=== PATIENT | male | born 1970 | race Caucasian/White ===

== ENCOUNTER 2025-04-01 09:22 | Emergency (ER) | payer BC, SELFPAY ==
[2025-04-01 09:31] VITALS: BP 159/99
[2025-04-01 10:01] LABS: Hematocrit 43.8 % (39.0-52.0); Hemoglobin 15.1 g/dL (13.0-18.0); Mean Corp Hgb Conc. 34.5 g/dL (33.0-37.0); Mean Corpuscular Volume 86.7 fL (80.0-94.0); Nucleated Red Blood Cells % 0 % (-); Platelet Count 154 10^3/uL (130-400); Red Cell Dist. Width 12.4 % (11.5-14.5)
[2025-04-01 10:11] LABS: ALT (SGPT) 26 U/L (0-50); AST (SGOT) 33 U/L (17-59); Albumin 4.6 g/dl (3.5-5.0); Alkaline Phosphatase 49 U/L (38-126); Blood Urea Nitrogen 14 mg/dl (9-20); Calcium 9.5 mg/dl (8.4-10.2); Carbon Dioxide 30 mmol/L (22-30); Chloride 100 mmol/L (98-107); Glucose 107 mg/dl (70-99); Potassium 4.5 mmol/L (3.5-5.1); Sodium 138 mmol/L (135-145); Total Protein 7.4 g/dl (6.3-8.2); eGFR > 60.00
[2025-04-01 10:22] LABS: Troponin I < 0.012 ng/ml
[2025-04-01 11:30] VITALS: BP 144/94
[2025-04-01 11:42] VITALS: BP 144/94
[2025-04-01 11:43] VITALS: BMI 24.6
[2025-04-01 12:00] VITALS: BP 167/97
--- NOTE | 2025-04-01 12:06 | ED.GENMED ---
History of Present Illness
General
Chief Complaint: Heart Rate Problem
Source: patient
Exam Limitations: none
Time Seen by Provider: 04/01/25 11:38
Nursing documentation reviewed up to this point in time: agreed with
History of Present Illness
History of Present Illness:
Pt without any sig. past medical history, presents to ED after outpatient EKG showed abnormal findings. 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 Denies chest pain/palpitations/sob. Denies recent illness. Denies
recent change in diet or weight changes. Denies family history of heart disease. Pt has no complaints. Pt states that he saw today's physician for the first time and did not have access to previous test results.
Review of Systems
Review of Systems
Allergies reviewed?: Yes
All Other Systems: ROS reviewed and negative except as documented in HPI and ROS
Constitutional: Reports no symptoms; Denies fever
Respiratory: Reports no symptoms; Denies trouble breathing
Cardiac: Reports no symptoms; Denies chest pain
ABD/GI: Reports no symptoms
Musculoskeletal: Reports no symptoms
Skin: Reports no symptoms
Neurological: Reports no symptoms
Phy Exam
Physical Exam
Physical Exam:
Physical Exam
General: no apparent distress, not acutely ill. afebrile
Head: nc/at. eomi
Neck: supple. no meningeal signs.
Heart: s1/s2 regular rate and rhythm
Lungs: no acute respiratory distress. clear bilaterally
Abdomen: normal bowel sounds. not tender.
Neuro: alert and oriented x 3. no focal neurological deficits
Skin: no rash
Psychiatric: well kept. interactive and cooperative
Extremities: no edema. no calf tenderness.
Course
Orders/Labs/Results
Orders:
Orders
04/01/25 09:33
Electrocardiogram (*1) Urgent
Reason for Study: Chest Pain
EKG- Treatment ONCE
IV Insert/Care/Rem.- Treatment PRN
04/01/25 09:43
Complete Blood Count/With Diff Urgent
Comprehensive Metabolic Panel Urgent
Troponin I Urgent
Abnormal Lab Results
04/01/25
09:43
MPV 10.5 H fL
(7.4-10.4)
Glucose 107 H mg/dl
(70-99)
Total Bilirubin 2.0 H mg/dl
(0.2-1.3)
04/01/25 09:43
04/01/25 09:43
Vital Signs
Initial and Last Documented VS:
Initial Vital Signs
Temp Pulse Resp BP Pulse Ox
98 F 58 16 159/99 100
04/01/25 09:31 04/01/25 09:31 04/01/25 09:31 04/01/25 09:31 04/01/25 09:31
Last Documented Vital Signs
Temp Pulse Resp BP Pulse Ox
98 F 65 17 167/97 100
04/01/25 09:31 04/01/25 12:00 04/01/25 12:00 04/01/25 12:00 04/01/25 12:07
MDM/Problems Addressed
MDM/Problems Addressed:
Patient with an unremarkable workup in ED, including blood work. EKG does reveal nonspecific T wave inversion on leads II and aVF, without any other abnormal findings.
Isolated elevation of total bilirubin level noted, to be discussed with his primary care physician.
Pt evaluated in ED by cardiology, Dr. Garcia. Cardiology consultation notation provided to patient prior to discharge
*Pulse Oximetry
SaO2: 100
Oxygen Mode of Delivery: Room air
Patient hypoxic: no
*EKG
Interpreted by ED Provider?: Yes
EKG Intrepretation Date: 04/01/25
Heart Rate: 63
Rate: normal
Rhythm: sinus
Ischemia: T-wave inversion
*Critical Care Note
Total Time (30-74mins, 75-104mins- exclusive of procedures): Not Applicable
ED Attending Note
-
Portions of this chart may have been created with voice recognition software.� Occasional wrong word or��sound alike� substitutions may have occurred due to the inherent limitations of voice recognition software.
Discharge Plan
Departure
Patient Disposition: Home (Routine Discharge)
Date of Disposition: 04/01/25
Time of Disposition: 12:56
Patient with high blood pressure during this ER visit?: Yes
Condition: Good
Discharge Problem:
Abnormal ECG
Prescriptions:
No Action
No Current Medications
0
Referrals:
Juancho Britton MD [Family Provider, Internal Medicine]
Julio Garcia MD [Active, Cardiology]
Activity Restrictions/Additional Instructions:
As discussed, please follow-up with your primary care physician with any further concerns.
Interventions
Interventions:
*Risk Screen - Suicide Last Done: 04/01/25 09:31
*General Assessment Last Done: 04/01/25 09:31
*Neglect/Abuse Screening Last Done: 04/01/25 09:31
*ED- Fall Risk Assessment Last Done: 04/01/25 11:45
*ED COVID-19 Vaccine History Last Done: 04/01/25 11:45
*ED Influenza Vaccine History Last Done: 04/01/25 11:45
*Nursing Disposition Last Done: 04/01/25 13:53
ED- Cardiac Assessment Last Done: 04/01/25 11:46
ED- Pulmonary Assessment Last Done: 04/01/25 11:46
Discharge Date and Time
Discharge Date/Time: 04/01/25 13:54
Print Language: GABONESE
--- NOTE | 2025-04-01 13:15 | CON.CAR ---
Addendum entered and electronically signed by Julio Garcia MD 04/01/25 13:45:
I saw and evaluated the patient, and I provided the substantive portion of the medical decision making.
I reviewed and agree with the note by Ms Lee and it accurately reflects our care.
I personally performed the medical decision making of the this encounter and my assessment and plan is below:
Abnormal EKG in an asymptomatic patient
- Mr. Perez has no symptoms to suggest coronary artery disease. He is very active running 4 to 6 miles 4-6 times every week. Additionally, he had lab work in the emergency room which was unremarkable. He needs no further testing or medications
from a cardiology perspective.
However, if he needs further testing per the [employer] due to this abnormal EKG, we would be happy to facilitate. If this is the case, we should be contacted at [facility] is [phone] with myself, Dr. Julio Garcia as philosophy faculty member.
Original Note:
Consultation
Consultation Request
Date/Time Consultation Requested: 04/01/25 1245
Date/Time Consultation Performed: 04/01/25 1300
Requesting Provider: Dr. Wong
Performing Provider: Linda PAULSON for Dr. Garcia
Reason for Consultation: abnormal EKG
Medical History
-
Chief Complaint: abnormal EKG
History of Present Illness:
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 His EKG was seen to be abnormal and he was recommended to go to the ER. Of note, his previous physician who typically did
these visits for patient retired so there were no old EKG's to compare. In ER, troponin is normal. He runs 4-6 miles 4-6 days a week and has no CP or SOB. He looks well at the time of assessment. EKG in ER: SR with T wave inversions III and AVF.
Past Medical History
Past Medical History: None
Past Surgical History: Other (prostate biopsy history)
Social History
Tobacco: Non-Smoker
Alcohol: Occasional
Drug: None
Personal:
Living: With Family
Employment: Employed
Family History
Family History: CAD (patient's father had CABG at age 60, was smoker, still alive)
Allergies / Home Medications
Allergy/AdvReac Type Severity Reaction Status Date / Time
No Known Allergies Allergy Unverified 04/01/25 09:47
�Medication �Instructions �Recorded �Confirmed �Type
No Meds [No Current Medications] 04/01/25 04/01/25 History
Review of Systems
-
History Source: Patient
All other systems: Negative unless noted (no symptoms)
Physical Exam
Vital Signs
Temp Pulse Resp BP Pulse Ox
98 F 65 17 167/97 100
04/01/25 09:31 04/01/25 12:00 04/01/25 12:00 04/01/25 12:00 04/01/25 12:07
Lab Results
04/01/25 09:43
04/01/25 09:43
Troponin I < 0.012 ng/ml 04/01/25 09:43
Physical Exam
General: Well Developed, Well Nourished and No Apparent Distress
HEENT: Normocephalic and Anicteric
Respiratory: Clear and Non Labored Respirations
Cardiac: Regular Rhythm
Musculoskeletal: No Edema
Skin: Warm and Dry
Neuro: AO x 3
Psych: Calm
Impression / Plan
-
Abnormal EKG: SR with T wave inversions III and AVF
-no previous EKG available at this time
-troponin is normal
-patient remains active as described and has no chest pain or shortness of breath. He looks well.
-no further testing required at this time from a general cardiac perspective in this patient without any concerning symptoms. However, if he needs further testing per the FAA due to this abnormal EKG, we would be happy to facilitate. If this is the
case, we should be contacted at [facility] is [phone] Julio Garcia as philosophy faculty member.
Data Reviewed
-
EKG: Tracing Personally Visualized and interpreted (SR with T wave inversions III and AVF)
Labs: Labs Reviewed by me
== END 2025-04-01 13:54 | disposition home or self-care (01) ==
LOC: EMR 09:22
PROVIDERS: EMERGENCY PHYSICIAN Emergency Medicine; FAMILY PHYSICIAN Internal Medicine
DX: R94.31 Abnormal electrocardiogram [ECG] [EKG] (principal); Z82.49 Family history of ischemic heart disease and other diseases of the circulatory system
CPT/HCPCS: 99283; 80053; 84484; 85025; 93005

== ENCOUNTER → 2025-04-09 14:28 | Outpatient (REF) | payer BC, SELFPAY | LOC: HWRCS 14:28 | PROVIDERS: ATTENDING PHYSICIAN Internal Medicine; FAMILY PHYSICIAN Hospitalist | DX: R94.31 Abnormal electrocardiogram [ECG] [EKG] (principal) | CPT/HCPCS: 93306 ==

== ENCOUNTER → 2025-04-10 11:49 | Outpatient (REF) | payer BC, SELFPAY | LOC: HWRCS 11:49 | PROVIDERS: ATTENDING PHYSICIAN Internal Medicine; FAMILY PHYSICIAN Internal Medicine | DX: R94.31 Abnormal electrocardiogram [ECG] [EKG] (principal) | CPT/HCPCS: 78452; 93017; A9500 ==